=== PATIENT | female | born 1980 | race Caucasian/White ===

== ENCOUNTER 2019-11-09 16:10 | Emergency (ER) | payer MEDICAID ==
[~2019-11-09] VITALS: Ht 170.2 cm; Wt 56.4 kg
[2019-11-09 16:15] VITALS: Ht 170.2 cm; Wt 56.4 kg
[2019-11-09] MEDS ORDERED: XANAX0.5 MG PO (16:17)
[2019-11-09] MEDS ORDERED: PRENAVITE1 TAB PO (16:17)
[2019-11-09 16:48] LABS: APPEARANCE CLEAR (CLEAR); BILIRUBIN NEGATIVE (NEGATIVE); COLOR YELLOW (YELLOW); GLUCOSE NEGATIVE (NEGATIVE); KETONE NEGATIVE (NEGATIVE); NITRITE NEGATIVE (NEGATIVE); PROTEIN NEGATIVE (NEGATIVE); SPECIFIC GRAVITY 1.015 (1.005-1.020); UROBILINOGEN NORMAL (NORMAL)
[2019-11-09 16:49] LABS: WHITE CELLS - URINE OCC /hpf (NEGATIVE)
[2019-11-09 16:49] LABS: BASOPHILS 0.2 % (0-2); EOSINOPHILS 1.4 % (0-7); HEMATOCRIT 44.8 % (36.0-48.0); HEMOGLOBIN 15.1 g/dL (12-16); IMMATURE GRANULOCYTES 0.2 % (0-5); LYMPHOCYTES 30.2 % (15-50); MCH 31.8 pg (26.0-34.0); MCHC 33.7 g/dL (31.0-37.0); MCV 94.3 fL (80.0-100.0); MONOCYTES 11.4 % (2-11); NEUTROPHILS 56.6 % (40-80); PLATELET COUNT 248 10x3/uL (130-400); RBC 4.75 10x6/uL (4.00-5.40); RDW 11.8 % (11.5-14.5); WBC 6.3 10x3/uL (4.8-10.8)
[2019-11-09 16:50] LABS: BACTERIA FEW /hpf (NEGATIVE); EPITHELIAL CELLS 0-5 /hpf (0-5)
[2019-11-09 17:05] LABS: CALC OSMOLALITY 270 mosm/kg (275-300); CALCIUM 8.8 mg/dL (8.5-10.1); CARBON DIOXIDE 24.8 mmol/L (21.0-32.0); CHLORIDE - SERUM 104 mmol/L (98-107); CREATININE - SERUM 0.7 mg/dL (0.6-1.3); GLUCOSE 101 mg/dL (74-106); POTASSIUM - SERUM 3.5 mmol/L (3.5-5.1); SODIUM 136 mmol/L (136-145); UREA NITROGEN 9 mg/dL (7-18); eGFR NON AFRICAN AMERICAN > 90 mL/min (90-120)
[2019-11-09 17:11] LABS: ALBUMIN 4.2 g/dL (3.4-5.0); ALKALINE PHOSPHATASE 72 U/L (46-116); ALT (SGPT) 16 U/L (10-68); AMYLASE - SERUM 25 U/L (25-115); LIPASE 71 U/L (73-393); PROTEIN - SERUM 7.7 g/dL (6.4-8.2)
[2019-11-09 18:07] LABS: BILIRUBIN - TOTAL 0.57 mg/dL (0.2-1.3); TROPONIN-I < 0.017 ng/mL (0.000-0.060)
[2019-11-09 18:09] LABS: HCG - QUANTITATIVE (MATERNAL) 4614 mIU/mL
[2019-11-09 19:15] VITALS: BP 123/90
== END 2019-11-09 19:16 | disposition home or self-care (01) ==
LOC: D.ER 16:10
PROVIDERS: Family Medicine
DX: O26.891 Other specified pregnancy related conditions, first trimester (principal); Z3A.01 Less than 8 weeks gestation of pregnancy; R10.31 Right lower quadrant pain